=== PATIENT | male | born 1945 | race Asian ===

== ENCOUNTER → 2017-02-25 | Outpatient (CLI) | payer OTHER | LOC: FIMAGING 12:52 | PROVIDERS: ATTEND Orthopaedic Surgery | DX: Z01.818 Encounter for other preprocedural examination (principal); M17.11 Unilateral primary osteoarthritis, right knee ==

== ENCOUNTER 2017-03-11 07:08 | Observation (INO) | payer OTHER ==
[~2017-03-11 07:08] MED LIST: ROPIVACAINE 0.2% 80 MG, EPINEPHrine 0.2 MG, KETOROLAC TROMETHAMINE 30 MG in BAG 0 ML IU ONE; TRANEXAMIC ACID 3,000 MG in NS 50 ML IRR ONE; TRANEXAMIC ACID 3,000 MG/50 ML BAG IRR ONE; VANCOMYCIN 1 GM VIAL ONE
[2017-03-11] MEDS ORDERED: [UNRECOGNIZED DRUG - OTHER] EACHNARE PRN (07:44)
[2017-03-11] MEDS ORDERED: DEXAMETHASONE 4 MG/ML VIAL IVP ONE (07:44)
[2017-03-11] MEDS ORDERED: ceFAZolin 2 GM/DEXTROSE 100 ML IV ONE (07:44)
[2017-03-11] MEDS ORDERED: FAMOTIDINE 20 MG TAB PO ONE (07:44)
[2017-03-11] MEDS ORDERED: [UNRECOGNIZED DRUG - OTHER] OP PRN (07:44)
[2017-03-11] MEDS ORDERED: ACETAMINOPHEN 325 MG TAB PO ONE (07:44)
[2017-03-11] MEDS ORDERED: NAPHAZOLINE HCL OP PRN (07:44)
[2017-03-11] MEDS ORDERED: LR 1,000 ML IV ONE (08:08)
[2017-03-11] MEDS ORDERED: LIDOCAINE 1% 2 ML INJ ID PRN (08:08)
--- NOTE | 2017-03-11 08:10 | PDANEPAE ---
ANE History of Present Illness L knee arthritis. ANE Past Medical History - Cardiovascular History Hx Hypertension: Yes Hx Arrhythmias: No Hx Chest Pain: No Hx Coronary Artery / Peripheral Vascular Disease: No Hx CHF / Valvular Disease: No Hx Palpitations: No - Pulmonary History Hx COPD: No Hx Asthma/Reactive Airway Disease: No Hx Recent Upper Respiratory Infection: No Hx Oxygen in Use at Home: No Hx Sleep Apnea: No - Neurologic History Hx Cerebrovascular Accident: No Hx Seizures: No Hx Dementia: No - Endocrine History Hx Diabetes: Yes Hypothyroid: Yes Obesity: no Endocrine History Comment: hypothyroidism - Renal History Hx Renal Disorders: No - Liver History Hx Hepatic Disorders: No - Neurological & Psychiatric Hx Hx Neurological and Psychiatric Disorders: No - Cancer History Hx Cancer: No - Congenital Disorder History Hx Congenital Disorders: No - GI History Hx Gastrointestinal Disorders: No - Chronic Pain History Chronic Pain: No - Surgical History Prior Surgeries: colonoscopy ANE Review of Systems - Exercise capacity METS (RN): 4 METS ANE Patient History - Allergies Allergies/Adverse Reactions: No Known Allergies Allergy (Unverified 03/04/17 10:11) - Home Medications Home medications: home medication list seen and reviewed Home Medications: Atorvastatin Calcium [Lipitor 10 mg (*)] 10 mg PO DAILY 02/25/17 [Last Taken Unknown] Beconase Aq 2 spr EACHNARE BID PRN 02/25/17 [Last Taken Unknown] Cholecalciferol Vit D3 [Vitamin D3 2000 units tab (OTC)] 2,000 units PO DAILY [Last Taken Unknown] Hydrochlorothiazide [HCTZ (*)] 50 mg PO DAILY 02/25/17 [Last Taken Unknown] Levothyroxine Sodium 88 mcg PO DAILY 02/25/17 [Last Taken Unknown] Naphazoline HCl/Phenir Mal [Visine-A] 1 drops OP TID PRN 02/25/17 [Last Taken Unknown] - Anes Hx Anes Hx: no prior problems (no prior surgery) - Smoking Hx Smoking Status: Former smoker (1/2 ppd x 15 years. stopped 15 years ago) - Family Anes Hx Family Anes Hx: neg - N/A Family Hx Anesthesia Complications: none ANE Labs/Vital Signs - Vital Signs Height: 172.72 cm Weight: 73.482 kg ANE Physical Exam - Airway Neck exam: FROM Mouth exam: normal dental/mouth exam - Pulmonary Pulmonary: clear to auscultation - Cardiovascular Cardiovascular: regular rate and rhythym - ASA Status ASA Status: II ANE Anesthesia Plan Anesthesia Plan: spinal Regional Anesthesia: single shot NB (AC nb)
--- NOTE | 2017-03-11 08:35 | PDHPUP ---
History & Physical Update H&P update statement: This history and physical update is based on an assessment of the patient which was completed after admission or registration (within 24 hours), but prior to the surgery/procedure. H&P update: H&P reviewed & patient examined, no change in patient's condition since H&P completed
[2017-03-11] MEDS ORDERED: PROPOFOL 200 MG/20 ML VIAL ONE ×2 (09:17→10:04)
[2017-03-11] MEDS ORDERED: fentaNYL 100 MCG/2 ML INJ ONE (09:17)
[2017-03-11] MEDS ORDERED: MIDAZOLAM 2 MG/2 ML VIAL ONE (09:18)
[2017-03-11] MEDS ORDERED: epHEDrine SULFATE 10 MG/ML SYR ONE (09:51)
[2017-03-11] MEDS ORDERED: ROPIVACAINE HCL 150 MG/30 ML INJ ONE (09:52)
[2017-03-11] MEDS ORDERED: NALOXONE HCL 0.4 MG/ML INJ IVP PRN (10:22)
[2017-03-11] MEDS ORDERED: fentaNYL 100 MCG/2 ML INJ IVP PRN (10:22)
[2017-03-11] MEDS ORDERED: DIPHENOXYLATE/ATROPINE LOMOTIL 1 TAB PO PRN (10:37)
[2017-03-11] MEDS ORDERED: BISACODYL 10 MG SUPP PR PRN (10:37)
[2017-03-11] MEDS ORDERED: PROMETHAZINE HCL 25 MG SUPPR PR PRN (10:37)
[2017-03-11] MEDS ORDERED: ONDANSETRON DISINTEGRATING 4 MG TAB PO PRN (10:37)
[2017-03-11] MEDS ORDERED: ONDANSETRON 4 MG/2 ML VIAL IVP PRN (10:37)
[2017-03-11] MEDS ORDERED: LACTULOSE 20 GM/30 ML UDCUP PO PRN (10:37)
[2017-03-11] MEDS ORDERED: diphenhydrAMINE 25 MG CAP PO PRN (10:37)
[2017-03-11] MEDS ORDERED: METOCLOPRAMIDE 10 MG/2 ML VIAL IVP PRN (10:37)
[2017-03-11] MEDS ORDERED: MAGNESIUM HYDROXIDE 30 ML UDCUP PO PRN (10:37)
[2017-03-11] MEDS ORDERED: TEMAZEPAM 15 MG CAP PO PRN (10:37)
[2017-03-11] MEDS ORDERED: PHARMACY PAIN CONSULT 1 EA MISC PRN (10:37)
[2017-03-11] MEDS ORDERED: CYCLOBENZAPRINE 10 MG TAB PO PRN (10:37)
[2017-03-11] MEDS ORDERED: POLYETHYLENE GLYCOL 3350 17 GM PKT PO PRN (10:37)
[2017-03-11] MEDS ORDERED: PROMETHAZINE HCL 25 MG/ML INJ IVP PRN (10:37)
--- NOTE | 2017-03-11 10:37 | POSTOPPROG ---
Post Op Note Date of Operation: 03/11/17 Surgeon: Jone Ham Access Database Developer: [email or web address] ham Anesthesiologist: dr. panda Anesthesia: Spinal, Other (Specify) (adductor canal block) Pre-op Diagnosis: right knee OA Post-op Diagnosis: same Indication: right knee pain due to OA that failed conservative measures Procedure: R med MPL robot assisted Findings: severe medial knee OA Inf/Abcess present in the surg proc area at time of surgery?: No EBL: 50-100
--- NOTE | 2017-03-11 10:55 | POSTANESTH ---
Post Anesthetic Evaluation Cardiovascular Status: Similar to Pre-Op Cond Respiratory Status: Normal, Stable Level of Consciousness/Mental Status: Can Participate in Eval Pain Control: Adequate, Prn Tx Ordered Nausea/Vomiting Control: Adequate, Prn Tx Ordered Complications Possibly Related to Anesthesia: None Noted
[2017-03-11] MEDS ORDERED: LR 1,000 ML IV SCH (11:00)
[2017-03-11] MEDS: ACETAMINOPHEN 325 MG TAB PO SCH ×2 (12:38→18:29)
[2017-03-11] MEDS: ceFAZolin 2 GM/DEXTROSE 100 ML IV SCH ×2 (15:03→20:38)
[2017-03-11] MEDS: SENNOSIDES/DOCUSATE SODIUM TAB PO SCH (20:39)
[2017-03-11] MEDS: FAMOTIDINE 20 MG TAB PO SCH (20:40)
[2017-03-11] MEDS: ASPIRIN 325 MG TAB PO SCH (20:46)
[2017-03-11] MEDS: oxyCODONE IR 5 MG TAB PO PRN (20:46)
[2017-03-11] MEDS: BECLOMETHASONE EACHNARE PRN (20:57)
[2017-03-12] MEDS: ACETAMINOPHEN 325 MG TAB PO SCH ×3 (04:23→10:52)
[2017-03-12] MEDS: oxyCODONE IR 5 MG TAB PO PRN (04:42)
[2017-03-12 05:23] LABS: HEMATOCRIT 39.9 % (40.0-51.0); HEMOGLOBIN 13.6 g/dL (13.7-17.5)
[2017-03-12 07:47] VITALS: BP 124/93; PULSE 68; RESP 18; TEMP 97.8; O2SAT 95
[2017-03-12] MEDS ORDERED: LEVOTHYROXINE 88 MCG TAB PO SCH (09:00)
[2017-03-12] MEDS ORDERED: ATORVASTATIN CALCIUM 10 MG TAB PO SCH (09:00)
[2017-03-12] MEDS: SENNOSIDES/DOCUSATE SODIUM TAB PO SCH (09:07)
[2017-03-12] MEDS: ASPIRIN 325 MG TAB PO SCH (09:12)
[2017-03-12] MEDS: FAMOTIDINE 20 MG TAB PO SCH (09:12)
[2017-03-12] MEDS: BECLOMETHASONE EACHNARE PRN (09:12)
[2017-03-12] MEDS: HYDROCHLOROTHIAZIDE 25 MG TAB PO SCH ×2 (09:13→10:53)
--- NOTE | 2017-03-12 09:58 | SOAPPROG ---
SOAP Progress Note Assessment/Plan: Assessment: Dali is doing well POD 1 s/p R med MPL 1) pain management: pain is well controlled on oral pain meds 2) VTE ppx: recommend aspirin daily and MARCOS hose 3) d/c planning: d/c to home pending release from PT today Plan: 03/12/17 09:57 Subjective: Dali is doing well today, denies SOB, chest pain and N/V. Objective: Vital Signs Temp Pulse Resp BP Pulse Ox 36.6 C 68 18 124/93 H 95 03/12/17 07:46 03/12/17 07:46 03/12/17 07:46 03/12/17 07:46 03/12/17 07:46 Laboratory Results 03/12/17 05:09 03/11/17 03/12/17 03/13/17 05:59 05:59 05:59 Intake Total 1830 Output Total 1100 Balance 730 RLE: incision dressing is clean and dry, NVI, +pf/df ICD10 Worksheet Patient Problems: Problems Problem Status Onset Primary localized osteoarthritis of right knee Acute
--- NOTE | 2017-03-17 09:43 | GDS ---
[f rep st] DISCHARGE SUMMARY ADMISSION DIAGNOSIS: Right knee osteoarthritis. DISCHARGE DIAGNOSIS: Right knee osteoarthritis. PROCEDURE: Right partial knee arthroplasty, medial compartment, robot-assisted. VTE PROPHYLAXIS: Aspirin recommended 3 weeks daily. BRIEF DESCRIPTION OF HOSPITAL STAY: Patient was admitted for an elective joint arthroplasty. The p atient tolerated the procedure well and has passed physical therapy. The patient was given appropri ate antibiotic prophylaxis and venous thromboembolism prophylaxis. The patient's pain was well cont rolled on oral pain medication, patient was holding down food, and had urinated. Decision was made to discharge the patient. The patient was given post-operative prescriptions pre-operatively. PLAN: Patient to follow up with Dr. Montoya's office on March 28 at 10:15 a.m. /[id number]/MODL
== END 2017-03-12 11:06 | disposition home or self-care (01) ==
LOC: INTOOBSV 07:08 → F3N 07:08
PROVIDERS: ADMIT Orthopaedic Surgery; ATTEND Orthopaedic Surgery
PROC: 8E0Y4CZ Robotic Assisted Procedure of Lower Extremity, Percutaneous Endoscopic Approach (ICD-10-PCS; principal; 2017-03-11 09:15)
PROC: 0SQC0ZZ Repair Right Knee Joint, Open Approach (ICD-10-PCS; principal; 2017-03-11 09:15)
DX: M17.11 Unilateral primary osteoarthritis, right knee (principal); I10 Essential (primary) hypertension; E07.9 Disorder of thyroid, unspecified
CPT/HCPCS: 27446; 73560; 97110; 97116; 97161; 97165; 97530; C1713; C1776; G0378; G8978; G8979; G8980; G8987; G8988; G8989; J0171; J0690; J1100; J1885; J2250; J2704; J2795; J3010; J3370

== ENCOUNTER → 2017-10-04 | Outpatient (CLI) | payer OTHER | LOC: FCPNEURO 23:06 | PROVIDERS: ATTEND Psychiatry & Neurology Sleep Medicine | DX: G47.33 Obstructive sleep apnea (adult) (pediatric) (principal) ==

== ENCOUNTER → 2018-02-20 | Outpatient (CLI) | payer OTHER | LOC: FIMAGING 11:01 | PROVIDERS: ATTEND Family Medicine | DX: M17.12 Unilateral primary osteoarthritis, left knee (principal) ==